=== PATIENT | female | born 1965 | race African-American/Black ===

== ENCOUNTER 2018-06-30 02:14 | Inpatient (IN) | payer OTHER ==
[~2018-06-30] VITALS: Ht 152.4 cm; Wt 85.7 kg
[~2018-06-30 02:14] MED LIST: GLUCOPHAGE1000 MG PO; GLYBURIDE 5 MG T5 M1 PO; HUMALOG100 UNIT/2 INJECTION; LANTUS SOL100 UNIT/1 INJECTION; NORCO 5-325 TA1 EACH PO; REQUIP0.5 MG; ZOFRAN ODT4 MG PO
[2018-06-30 02:52] VITALS: BP 144/66
[2018-06-30 02:58] LABS: ABSOLUTE BASOPHILS 0.1 thou/uL (0.0-0.2); ABSOLUTE MONOCYTES 0.8 thou/uL (0.0-1.2); ABSOLUTE NEUTROPHILS 3.7 thou/uL (1.6-8.1); BASOPHILS 1.4 %; EOSINOPHILS 0.5 %; HEMATOCRIT 38.5 % (37.0-47.0); HEMOGLOBIN 12.6 gm/dL (12.0-15.0); LYMPHOCYTES 38.6 %; MCH 25.4 pg (26.0-34.0); MCHC 32.6 g/dL (28.0-37.0); MCV 77.9 fL (80.0-100.0); MONOCYTES 10.9 %; MPV 9.7 fl. (7.2-11.1); NUCLEATED RBCS 0 /100WBC; PLATELET COUNT* 219 thou/uL (150-400); POLYS 48.6 %; RBC 4.95 mil/uL (4.20-5.00); RDW-CV 15.5 % (10.5-14.5); WBC 7.7 thou/uL (4.0-11.0)
[2018-06-30 03:13] LABS: ANION GAP 8 mmol/L (7-16); BUN 18 mg/dL (7-18); CALCIUM 8.6 mg/dL (8.5-10.1); CHLORIDE 101 mmol/L (98-107); CO2 28 mmol/L (21-32); CREATININE 0.9 mg/dL (0.6-1.3); GLUCOSE 420 mg/dL (70-99); POTASSIUM 3.7 mmol/L (3.5-5.1); SODIUM 137 mmol/L (136-145)
[2018-06-30 03:20] LABS: APTT 25.3 Seconds (25.0-31.3); INR 0.9; PROTIME 9.7 Seconds (9.20-11.50)
[2018-06-30 03:24] LABS: ALBUMIN 3.4 g/dL (3.4-5.0); ALKALINE PHOSPHATASE 102 U/L (46-116); NT-PRO BRAIN NAT PEPTIDE 9 pg/mL (<300); SGOT 15 U/L (15-37); SGPT 28 U/L (30-65); TOTAL BILIRUBIN 0.2 mg/dL (<0.1-1.0); TOTAL PROTEIN 7.2 g/dL (6.4-8.2); TROPONIN-I LEVEL <0.06 ng/mL (<0.06)
[2018-06-30 04:30] VITALS: BP 117/65
[2018-06-30 05:29] LABS: URINE BILIRUBIN NEGATIVE (Negative); URINE BLOOD NEGATIVE (Negative); URINE CLARITY CLEAR; URINE COLOR YELLOW; URINE GLUCOSE-RANDOM 3+ (Negative); URINE KETONES TRACE (Negative); URINE LEUKOCYTES-REFLEX NEGATIVE (Negative); URINE NITRITE-REFLEX NEGATIVE (Negative); URINE PROTEIN NEGATIVE (Negative); URINE SPECIFIC GRAVITY 1.015 (1.005-1.030); URINE UROBILINOGEN 0.2 E.U./dl (0.2-1.0)
[2018-06-30 08:00] VITALS: BP 115/82
--- NOTE | 2018-06-30 08:36 | NUR ---
RECIEVED REPORT FROM CIRCULATION CREW LEADER @0413. PT ARRIVED TO ROOM 206 PER CART. STEADY GAIT. COLLECTED AND SENT URINE SAMPLE. MAINTAINED CARDIZEM DRIP AND STARTED IV FLUIDS. ADMISSION ASSESSMENT AND SEPSIS SCREENING COMPLETE. SEE CHARTING FOR EDUCATION. O2 @ 2L. NPO FOR CARDIOLOGY CONSULT. NO PAIN OR DISCOMFORT @ THIS TIME. AFIB/AFLUTTER ON THE MONITOR. 90'S TO 110'S. CALL LIGHT AT BEDSIDE. HOURLY ROUNDING FOR SAFETY.
[2018-06-30 12:00] VITALS: BP 132/75
--- NOTE | 2018-06-30 12:31 | EKG ---
[place] [address] ELECTROCARDIOGRAM REPORT Name: BERNARYLEY SONI Room: [address] ADM IN M.R.#: [id number] Admission: 06/30/18 Attend Phys: Meliton Mcnulty Discharge: Date of : 61 Report #: [id number] THIS REPORT FOR: //name// [facility] ED Test Date: 2018-06-30 Test Time: 02:20:28 Pat Name: RYLEY CORONEL Department: Room: [facility] Gender: F Surgical Assist: KAREY : 1965 Requested By: Enid Hernández Order Number: [id number] MD: Chay Plata Measurements Intervals [place] Rate: 193 P: [place]: QRS: 33 QRSD: 77 T: -27 QT: 260 QTc: 466 Interpretive Statements Atrial fibrillation with rapid V-rate Ventricular premature complex Low voltage, precordial leads Anteroseptal infarct, old Repolarization abnormality, prob rate related No previous ECG available for comparison Electronically Signed On 06-30-2018 12:31:19 INTERNATIONAL OPERATIONS MANAGER by Chay Plata [email or web address] <ELECTRONICALLY SIGNED> By: Chay Plata MD, FACC 06/30/18 1231 9 9 Chay Plata MD, [facility] /EPI
--- NOTE | 2018-06-30 12:31 | EKG ---
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 And Curer: Aurelia GOLDBERG : 1965 Requested By: Enid Hernández Order Number: [id number] MD: Chay Plata Measurements Intervals [place] Rate: 114 P: [place]: QRS: 15 QRSD: 71 T: -7 QT: 340 QTc: 469 Interpretive Statements Atrial fibrillation LVH by voltage Anterior Q waves, possibly due to LVH No previous ECG available for comparison Electronically Signed On 06-30-2018 12:31:33 SURVEY CHIEF by Chay Plata [email or web address] <ELECTRONICALLY SIGNED> By: Chay Plata MD, [facility] 06/30/18 1231 0317 0317 Chay Plata MD, FACC /EPI
--- NOTE | 2018-06-30 12:31 | EKG ---
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: : 1965 Requested By: Enid Hernández Order Number: [id number] MD: Chay Plata Measurements Intervals [place] Rate: 207 P: [place]: QRS: 43 QRSD: 72 T: 225 QT: 233 QTc: 433 Interpretive Statements Atrial fibrillation with rapid V-rate Low voltage, precordial leads Anteroseptal infarct, old, possible Repolarization abnormality, prob rate related No previous ECG available for comparison Electronically Signed On 06-30-2018 12:31:28 FORECLOSURE SPECIALIST by Chay Plata [email or web address] <ELECTRONICALLY SIGNED> By: Chay Plata MD, FACC 06/30/18 1231 0237 0237 Chay Plata MD, FAC /EPI
[2018-06-30 16:00] VITALS: BP 138/70
[2018-06-30 20:00] VITALS: BP 141/64
--- NOTE | 2018-06-30 20:00 | NUR ---
RECEIVED REPORT AND ASSUMED CARE OF PT, ASSESSMENT COMPLETED. TELEMETRY ON SHOWING SR. AMINODARONE CONNECTED TO PT BUT OFF. PT ASKING FOR SHOWER AND TAKEN. AMINO RESTARTED AFTER THIS. DENIES CP OR SOB. FAMILY AT BEDSIDE. WILL CONT TO MONITOR AND ASSIST NEEDED.
[2018-06-30 23:05] LABS: GLYCOHEMOGLOBIN (HGB A1C) 12.9 % (4.8-5.6)
[2018-07-01] VITALS: BP 119/56
[2018-07-01 04:00] VITALS: BP 118/62
--- NOTE | 2018-07-01 05:11 | NUR ---
SLEPT WELL TONIGHT. NO CHANGE IN ASSESSMENT. TELMETRY CONT TO SHOW SR WITH ANIMODARONE INFUSING. VOIDING WITHOUT DIFFICULTY. HS GOALS OF REST AND SAFETY ACHIEVED. HOURLY ROUNDING OBSERVED.
[2018-07-01 05:40] LABS: ABSOLUTE EOSINOPHILS 0.1 thou/uL (0.0-0.7); ABSOLUTE LYMPHOCYTES 2.2 thou/uL (0.8-5.3); ABSOLUTE MONOCYTES 0.5 thou/uL (0.0-1.2); ABSOLUTE NEUTROPHILS 2.2 thou/uL (1.6-8.1); BASOPHILS 0.8 %; EOSINOPHILS 1.2 %; HEMATOCRIT 36.1 % (37.0-47.0); LYMPHOCYTES 43.6 %; MCH 25.7 pg (26.0-34.0); MCHC 33.2 g/dL (28.0-37.0); MCV 77.6 fL (80.0-100.0); MONOCYTES 10.2 %; MPV 8.9 fl. (7.2-11.1); NUCLEATED RBCS 0 /100WBC; PLATELET COUNT* 208 thou/uL (150-400); POLYS 44.2 %; RBC 4.65 mil/uL (4.20-5.00); RDW-CV 15.7 % (10.5-14.5)
[2018-07-01 05:51] LABS: CALCIUM 8.9 mg/dL (8.5-10.1); CREATININE 0.8 mg/dL (0.6-1.3); POTASSIUM 3.5 mmol/L (3.5-5.1)
[2018-07-01 08:23] VITALS: BP 148/79
[2018-07-01 12:23] VITALS: BP 146/82
--- NOTE | 2018-07-01 12:34 | NUR ---
Pt is A&O. Resides at home with her . Normally independent with ADLs, continues to cook, clean and drive. No DME. No hx of HH or SNF. [place]. No needs anticipated.
--- NOTE | 2018-07-01 12:47 | CON ---
[facility] [address] [place] [address] CONSULTATION Name: FREDI CORONELA SONI Room: [address] IN M.R.#: [id number] Admission: 06/30/18 Attend Phys: Meliton Mcnulty Discharge: Date of : 61 Report #: [id number] THIS REPORT FOR: //name// CC: Alejandro Qiu DATE OF SERVICE: 06/30/2018 INDICATION: New onset atrial fibrillation. HISTORY OF PRESENT ILLNESS: The patient is a very pleasant 52-year-old -[place] female with no prior cardiac history. She was awoken last night with shortness of breath and chest discomfort. In the Emergency Room she was found to be in atrial fibrillation with a rapid ventricular response rate. She was placed on a diltiazem drip after a bolus, which has controlled the heart rhythm. She remains in atrial fibrillation. At the present time, she is without shortness of breath or chest pain. She denies any other cardiac complaint at this time. PAST MEDICAL HISTORY: 1. Type 2 diabetes mellitus, insulin requiring. 2. Hysterectomy. 3. Appendectomy. HOME MEDICATIONS: Lantus 30 units at bedtime, lispro 5 units t.i.d., metformin 1000 mg b.i.d. ALLERGIES: None documented. FAMILY HISTORY: Noncontributory. SOCIAL HISTORY: The patient does not smoke. She does not drink alcohol. REVIEW OF SYSTEMS: Otherwise, uneventful. PHYSICAL EXAMINATION: VITAL SIGNS: Blood pressure 115/82, pulse in the 113 range. GENERAL: This is a pleasant lady, in no distress. HEENT: Head normocephalic, atraumatic. Extraocular muscles intact. The patient is wearing glasses. NECK: Shows no jugular venous distention. No carotid bruits. CHEST: Reveals clear lung michael without wheezes, rales or rhonchi. CARDIAC: Reveals an irregularly irregular tachycardic rhythm that is without gallop or murmur. ABDOMEN: Reveals normal bowel sounds. The abdomen is soft and nontender. EXTREMITIES: Shows no edema. Peripheral pulses 2+ [place] [address] CONSULTATION Name: RYLEY CORONEL Room: [address] IN [facility]#: [id number] Admission: 06/30/18 Attend Phys: Meliton Mcnulty Discharge: Date of : 61 Report #: [id number] SKIN: Warm and dry. LABORATORY DATA: A 12-lead EKG shows atrial fibrillation with rapid ventricular response rate. Chest x-ray shows no acute cardiopulmonary abnormality. Labs are reviewed. Sodium 137, potassium 3.7, chloride 101, bicarbonate 28, BUN 18, creatinine 0.9, serum glucose 420. LFTs within normal limits. Troponin less than 0.06. White blood cell count 7.7, hemoglobin 12.6, platelet count 219,000. IMPRESSION AND RECOMMENDATIONS: 1. New onset atrial fibrillation with rapid ventricular response rate. Rate relatively controlled on a diltiazem drip. I am switching to an amiodarone drip with an amiodarone bolus in an effort to force cardioversion. We will start Xarelto 20 mg daily as she has a CHADS-VASc score of 2. Obtaining echocardiogram to evaluate underlying cardiac structure and function. We will obtain thyroid function studies. 2. Hypercoagulable state due to atrial fibrillation. Start Xarelto 20 mg daily. 3. Chest pain, atypical. Troponins are unremarkable. We will obtain echocardiogram for further evaluation. 4. Shortness of breath due to atrial fibrillation with rapid ventricular response rate. <ELECTRONICALLY SIGNED> By: Chay Plata MD, FACC 07/01/18 1247 0906 1005[facility] Plata MD, FACC /nt
[2018-07-01 15:36] VITALS: BP 165/86
--- NOTE | 2018-07-01 17:34 | 2DMMODE ---
[place] [address] 2 D/M-MODE ECHOCARDIOGRAM Name: FREDI CORONELA SONI Room: [address] [place] [address] ADM IN .[place].#: [id number] Admission: 06/30/18 Attend Phys: Alejandro Mahajan Discharge: Date of : 61 Date of Service: 07/01/18 1734 Report #: [id number] THIS REPORT FOR: //name// APPROVED REPORT Study performed: 07/01/2018 15:04:34 EXAM: Comprehensive 2D, Doppler, and color-flow Echocardiogram Patient Location: In-Patient Room #: [facility] Status: routine BSA: 1.81 HR: 83 bpm BP: 146/82 mmHg Rhythm: NSR Other Information Study Quality: Good Indications Atrial Fibrillation 2D Dimensions IVSd: 9.40 (7-11mm) LVOT Diam: 20.62 (18-24mm) LVDd: 40.50 mm PWd: 7.81 (7-11mm) Ascending Ao: 27.89 (22-36mm) LVDs: 26.63 (25-40mm) Aortic Root: 28.06 mm Volumes Left Atrial Volume (Systole) LA ESV Index: 24.10 mL/m2 Aortic Valve AoV Peak Tony.: 1.23 m/s AO Peak Gr.: 6.06 mmHg LVOT Max P.32 mmHg AO Mean Gr.: 3.38 mmHg LVOT Mean P.21 mmHg LVOT Max V: 0.76 m/s AO V2 VTI: 22.81 cm LVOT Mean V: 0.51 m/s BENNY (VTI): 2.21 cm2 LVOT V1 VTI: 15.11 cm Mitral Valve E/A Ratio: 0.79 MV Decel. Time: 198.91 ms MV E Max Tony.: 0.81 m/[place] [address] 2 D/M-MODE ECHOCARDIOGRAM Name: BERNARYLEY Room: [address] IN M.R.#: [id number] Admission: 06/30/18 Attend Phys: Alejandro Mahajan Discharge: Date of : 61 Date of Service: 07/01/18 1734 Report #: [id number] MV PHT: 57.68 ms MVA (PHT): 3.81 cm2 TDI E/Lateral E': 9.00 E/Medial E': 9.00 Medial E' Tony.: 0.09 m/s Lateral E' Tony.: 0.09 m/s Pulmonary Valve PV Peak Tony.: 0.76 m/s PV Peak Gr.: 2.30 mmHg Tricuspid Valve RAP Estimate: 5.00 mmHg TR Peak Gr.: 23.58 mmHg RVSP: 28.00 mmHg PA Pressure: 28.00 mmHg Left Ventricle The left ventricle is normal size. There is normal LV segmental wall motion. There is normal left ventricular wall thickness. Left ventricular systolic function is normal. The left ventricular ejection fraction is within the normal range. LVEF is 60-65%. The left ventricular diastolic function is normal. Right Ventricle The right ventricle is normal size. The right ventricular systolic function is normal. Atria The left atrium size is normal. The right atrium size is normal. Aortic Valve The aortic valve is normal in structure. No aortic regurgitation is present. There is no aortic valvular stenosis. Mitral Valve The mitral valve is normal in structure. Mild mitral regurgitation. No evidence of mitral valve stenosis. Tricuspid Valve The tricuspid valve is normal in structure. Mild tricuspid regurgitation. No pulmonary hypertension. Pulmonic Valve The pulmonary valve is normal in structure. There is no pulmonic [place] [address] 2 D/M-MODE ECHOCARDIOGRAM Name: RYLEY CORONEL Room: [address] IN [facility].#: [id number] Admission: 06/30/18 Attend Phys: Alejandro Mahajan Discharge: Date of : 61 Date of Service: 07/01/18 1734 Report #: [id number] Great Vessels The aortic root is normal in size. IVC is normal in size and collapses >50% with inspiration. Pericardium There is no pericardial effusion. <Conclusion> LVEF is 60-65%. Mild mitral regurgitation. Mild tricuspid regurgitation. No pulmonary hypertension. <ELECTRONICALLY SIGNED> By: Isaías Johnson MD, [facility] 07/01/18 1734 1734 1734 Isaías Johnson MD, FACC /INF
[2018-07-01 19:30] VITALS: BP 143/73
[2018-07-02] VITALS: BP 140/84
--- NOTE | 2018-07-02 01:57 | NUR ---
RECIEVED REPORT AND ASSUMED CARE AT 1900. 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 VITAL SIGNS STABLE. PT DENIES ANY PAIN AT THIS TIME. PT UP ADLIB. ASSESSMENT COMPLETED AND DISCUSSED PLAN OF CARE, PT UNDERSTANDS. BED LOCKED AND CALL LIGHT WITHIN REACH. FALL PRECAUTIONS IN PLACE. HOURLY ROUNDING DONE AND ALL NEEDS MET. NURSING WILL CONTINUE TO MONITOR.
[2018-07-02 04:00] VITALS: BP 161/77
[2018-07-02 07:55] VITALS: BP 150/78
[2018-07-02 11:22] VITALS: BP 170/94
[2018-07-02 11:48] VITALS: BP 170/94
[2018-07-02] MEDS ORDERED: PACERONE 200 M200 M1 PO (12:45)
[2018-07-02] MEDS ORDERED: XARELTO10 MG PO (12:50)
[2018-07-02] MEDS ORDERED: FLECAINIDE ACET50 M1 PO (12:52)
[2018-07-02 14:01] VITALS: BP 170/94
[2018-07-02] MEDS ORDERED: LOPRESSOR50 PO (14:07)
--- NOTE | 2018-07-02 15:12 | NUR ---
PT VSS THIS SHIFT ON RA, RUNNING SR ON THE MONITOR, WITH NO C/O PAIN, NUMBNESS/TINGLING OR N/V THIS SHIFT. PT TOLERATING BEING UP AD MARIA TERESA WITH STEADY GAIT THIS SHIFT. PT DID NOT VERBALIZED ANY QUESTIONS AT DISCHARGE. 3 RX PROVIDED AND 2 APPOINTMENTS MADE WITH DISCUSSION TO FOLLOW UP WITH PCP IN 2 WEEKS. PT VERBALIZED UNDERSTANDING AT THIS TIME. 2 IV'S REMOVED INTACT. NO NEW CONCERNS AT THIS TIME. PT TO BE TAKEN OUT WITH HOSPITAL STAFF.
== END 2018-07-02 18:07 | disposition home or self-care (01) | DRG 308 ==
LOC: M.ERS 02:14 → M.2W 03:59 → M.TBA-ER 03:59 → M.2W 04:20
PROVIDERS: Internal Medicine; Personal Emergency Response Attendant; ADMIT Internal Medicine
DX: I48.91 Unspecified atrial fibrillation (principal); E11.00 Type 2 diabetes mellitus with hyperosmolarity without nonketotic hyperglycemic-hyperosmolar coma (NKHHC); D68.59 Other primary thrombophilia; I48.92 Unspecified atrial flutter; M19.90 Unspecified osteoarthritis, unspecified site; I10 Essential (primary) hypertension; E78.5 Hyperlipidemia, unspecified; R07.89 Other chest pain; E11.65 Type 2 diabetes mellitus with hyperglycemia; Z79.01 Long term (current) use of anticoagulants; Z79.84 Long term (current) use of oral hypoglycemic drugs; Z79.4 Long term (current) use of insulin; Z90.49 Acquired absence of other specified parts of digestive tract; Z90.710 Acquired absence of both cervix and uterus